=== PATIENT | female | born 2000 | race Caucasian/White ===

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

== ENCOUNTER → 2021-12-20 | Outpatient (CLI) | payer OTHER ==
[~2021-12-20] MED LIST changes: +ROBAXIN-750750 MG PO
[2021-12-20 11:19] LABS: THYROXINE (T4) TOTAL 8.5 ug/dl (4.8-13.9)
[2021-12-20 11:24] LABS: THYROID STIM HORMONE (HS) 2.25 uIU/ml (0.358-4.75)
== END ==
LOC: LAB 09:57
PROVIDERS: ATTEND Family Medicine
DX: Z13.1 Encounter for screening for diabetes mellitus (principal); Z13.6 Encounter for screening for cardiovascular disorders; F41.1 Generalized anxiety disorder; F33.1 Major depressive disorder, recurrent, moderate; E55.9 Vitamin D deficiency, unspecified; Z79.899 Other long term (current) drug therapy

== ENCOUNTER 2025-08-23 09:14 | Emergency (ER) | payer OTHER ==
[~2025-08-23] VITALS: Ht 160 cm; Wt 108.9 kg
== END 2025-08-23 11:32 | disposition home or self-care (01) ==
LOC: ED 09:14
DX: S93.402A Sprain of unspecified ligament of left ankle, initial encounter (principal); W04.XXXA Fall while being carried or supported by other persons, initial encounter; Y93.89 Activity, other specified; Y92.89 Other specified places as the place of occurrence of the external cause; Y99.8 Other external cause status